=== PATIENT | male | born 1945 | race American Indian/Alaskan Native ===

== ENCOUNTER 2021-05-23 14:32 | Emergency (ER) | payer OTHER ==
[~2021-05-23] VITALS: Ht 185.4 cm; Wt 90.7 kg
[2021-05-23] MEDS ORDERED: HYDROCODON-ACE1 EA10 (14:44)
[2021-05-23] MEDS ORDERED: CYCLOBENZAPRINE10 MG (14:45)
[2021-05-23] MEDS ORDERED: MACROBID 100 M100 MG (14:45)
[2021-05-23] MEDS ORDERED: HYDROCODON-ACE1 EA10 PO (19:36)
[2021-05-23] MEDS ORDERED: PREDNISONE20 MG PO (19:36)
== END 2021-05-23 20:10 | disposition home or self-care (01) ==
LOC: ED 14:32
DX: M40.202 Unspecified kyphosis, cervical region (principal); Z79.899 Other long term (current) drug therapy
CPT/HCPCS: 72040; 72070; 72125; 96372; 99284-25; J1170; J7512